=== PATIENT | female | born 1955 | race Caucasian/White ===

== ENCOUNTER 2019-07-06 20:46 | Emergency (ER) | payer MEDICARE ==
[2019-07-06 20:56] VITALS: BP 161/65
--- NOTE | 2019-07-06 20:59 | UC ---
Skin Complaint HPI - HPI Summary HPI Summary: 64 yo female presents with bee stings. She tells me that on 07/01/19 she was stung by several wasps on her legs and arms. She iced the areas and swelling and pain subsided within 24 hours. On 07/04 she had a colonoscopy prep that severely upset her stomach. She went in for her colonoscopy on 07/05, but ended up not having this performed. Her stomach has gradually improved since that time and she is drinking water and eating well. No diarrhea. Last night she noticed the areas where the bees stung her are red and raised again and mildly itchy. She took two benadryl today with no change. Denies fever, chills, decreased ROM, difficulty breathing, SOB, chest pain. - History of Current Complaint Chief Complaint: UCSkin Time Seen by Provider: 07/06/19 20:58 Stated Complaint: BEE STING Hx Obtained From: Patient Onset/Duration: Gradual Onset Onset Severity: Mild Current Severity: Mild Pain Intensity: 3 Pain Scale Used: 0-10 Numeric - Allergy/Home Medications Allergies/Adverse Reactions: Allergies Allergy/AdvReac Type Severity Reaction Status Date / Time kiwi Allergy Airway Verified 07/06/19 20:57 Obstruction Penicillins Allergy Unknown Verified 07/06/19 20:57 Reaction Details shellfish derived Allergy Anaphylatic Verified 07/06/19 20:57 Shock cats Allergy Wheezing Uncoded 07/06/19 20:57 Home Medications: Home Medications diphenhydrAMINE HCl [Benadryl Allergy] 1 tab PO Q4HR PRN 07/06/19 [History Confirmed 07/06/19] PMH/Surg Hx/FS Hx/Imm Hx - Additional Past Medical History Additional PMH: None - Surgical History Surgical History: Yes Surgery Procedure, Year, and Place: rhinoplasty. facial surgery - Family History Known Family History: Positive: Non-Contributory - Social History Lives: With Family Alcohol Use: Occasionally Substance Use Type: None Smoking Status (MU): Never Smoked Tobacco Review of Systems All Other Systems Reviewed And Are Negative: Yes Constitutional: Positive: Negative Skin: Positive: Other - Bee stings Respiratory: Positive: Negative Cardiovascular: Positive: Negative Neurovascular: Positive: Negative Musculoskeletal: Positive: Negative Neurological: Positive: Negative Psychological: Positive: Negative Physical Exam - Summary Physical Exam Summary: GENERAL: NAD. WDWN. No pain distress. SKIN: Bee stings with 1.0cm diameter areas of mild erythema and edema at left middle finger, left medial knee, left ankle, right medial knee, and right calf. HEENT: Head: AT/NC. No edema. Throat: Posterior oropharynx without exudates, erythema, or tonsillar enlargement. Uvula midline. Airway patent NECK: Supple. Nontender. No lymphadenopathy. CHEST: CTAB. No r/r/w. No accessory muscle use. Breathing comfortably and in no distress. CV: RRR. Without m/r/g. Pulses intact. Cap refill <2seconds NEURO: Alert. PSYCH: Age appropriate behavior. Triage Information Reviewed: Yes Vital Signs: Initial Vital Signs Temp 98.8 F 07/06/19 20:51 Pulse 102 07/06/19 20:51 Resp 18 07/06/19 20:51 BP 161/65 07/06/19 20:51 Pulse Ox 97 07/06/19 20:51 Vital Signs Reviewed: Yes Course/Dx - Course Course Of Treatment: Suspect histamine reaction due to inflammation from recent bowel prep that has caused a resurgence of her bee stings. Will start her with steroids and have her continue benadryl - Diagnoses Provider Diagnosis: Bee sting Discharge - Sign-Out/Discharge Documenting (check all that apply): Patient Departure All imaging exams completed and their final reports reviewed: No Studies - Discharge Plan Condition: Stable Disposition: HOME Prescriptions: predniSONE TAB* [Deltasone 20 MG TAB*] 60 mg PO DAILY #10 tab Patient Education Materials: Insect Bite or Sting (ED) Referrals: No Primary Care Phys,NOPCP [Primary Care Provider] - Additional Instructions: If you develop a fever, shortness of breath, chest pain, new or worsening symptoms - please call your PCP or go to the ED immediately. Your blood pressure was high at todays visit. Please see your primary provider within 4 weeks for recheck and re-evaluation. Continue taking benadryl and icing the areas - Billing Disposition and Condition Condition: STABLE Disposition: Home
[2019-07-06] MEDS ORDERED: Dexamethasone TAB* 4 MG PO ONE (21:13)
== END 2019-07-06 21:23 | disposition home or self-care (01) ==
LOC: UCEAST 20:46 → MERGE 20:46 → UCEAST 21:23
DX: T63.441A Toxic effect of venom of bees, accidental (unintentional), initial encounter (principal); Y92.9 Unspecified place or not applicable; Z88.0 Allergy status to penicillin
CPT/HCPCS: 99202; G0463; J8540

== ENCOUNTER 2019-12-23 11:27 | Emergency (ER) | payer MEDICARE ==
[2019-12-23 12:00] VITALS: BP 134/74
--- NOTE | 2019-12-23 12:01 | UC ---
Respiratory Complaint HPI - HPI Summary HPI Summary: 64 yo female presents with URI symptoms. She tells me that over the last 4 days she has had sinus pain/pressure/congestion. Over the last 2 days has had a persistent cough that feels "junky" in her lungs, but she is unable to cough anything up. She has a hx of asthma and has a nebulizer at home that she used this morning with little relief. She has felt fatigued and feverish, but has not taken her temperature. Denies sore throat, chest pain, back pain, abdominal pain, n/v. - History of Current Complaint Chief Complaint: UCGeneralIllness Stated Complaint: RESP COMPLAINT Time Seen by Provider: 12/23/19 12:01 Onset/Duration: Gradual Onset Severity Initially: Moderate Severity Currently: Moderate Pain Intensity: 7 Pain Scale Used: 0-10 Numeric - Allergies/Home Medications Allergies/Adverse Reactions: Allergies Allergy/AdvReac Type Severity Reaction Status Date / Time codeine Allergy GI Upset Verified 12/23/19 11:55 kiwi Allergy Airway Verified 07/31/19 07:19 Obstruction Penicillins Allergy Unknown Verified 07/31/19 07:19 Reaction Details shellfish derived Allergy Anaphylatic Verified 07/31/19 07:19 Shock cats Allergy Wheezing Uncoded 07/31/19 07:19 Home Medications: Home Medications Dextromethorphan Polistirex [Robitussin ER] 30 mg PO ONCE 12/23/19 [History Confirmed 12/23/19] PMH/Surg Hx/FS Hx/Imm Hx Respiratory History: Asthma - Surgical History Surgical History: Yes Surgery Procedure, Year, and Place: rhinoplasty. facial surgery - Family History Known Family History: Positive: Non-Contributory - Social History Occupation: Employed Full-time Lives: With Family Alcohol Use: None Substance Use Type: None Smoking Status (MU): Never Smoked Tobacco Review of Systems All Other Systems Reviewed And Are Negative: No Constitutional: Positive: Fatigue Skin: Positive: Negative Eyes: Positive: Negative ENT: Positive: Sinus Congestion, Sinus Pain/Tenderness Respiratory: Positive: Shortness Of Breath, Cough Cardiovascular: Positive: Negative Gastrointestinal: Positive: Negative Neurological: Positive: Negative Psychological: Positive: Negative Physical Exam - Summary Physical Exam Summary: GENERAL: NAD. WDWN. No pain distress. SKIN: No rashes, sores, lesions, or open wounds. HEENT: Head: AT/NC Eyes: Conjunctiva clear without inflammation or discharge. Ears: Hearing grossly normal. TMs intact, no bulging, erythema, or edema. Nose: Nasal mucosa mildly swollen and erythematous with yellow discharge. TTP maxillary and frontal sinus. Positive post nasal drip Throat: Posterior oropharynx without exudates, erythema, or tonsillar enlargement. Uvula midline. NECK: Supple. Nontender. No lymphadenopathy. CHEST: Moderate wheezing throughout. No r/r. No accessory muscle use. Breathing comfortably and in no distress. CV: RRR. Pulses intact. Cap refill <2seconds NEURO: Alert. PSYCH: Age appropriate behavior. Triage Information Reviewed: Yes Vital Signs: Initial Vital Signs Temp 98.8 F 12/23/19 11:56 Pulse 91 12/23/19 11:56 Resp 16 12/23/19 11:56 BP 134/74 12/23/19 11:56 Pulse Ox 96 12/23/19 11:56 Laboratory Tests 12/23/19 12:33 Influenza A (Rapid) Negative Influenza B (Rapid) Negative Vital Signs Reviewed: Yes Diagnostics - Radiology CXR Radiology Interpretation Completed By: Radiologist Summary of Radiographic Findings: IMPRESSION: NO ACTIVE CARDIOPULMONARY DISEASE. Re-Evaluation - Re-Evaluation First Eval Re-Evaluation Time: 13:10 Change: Improved Comment: Lung sounds improved s/p duoneb. Less wheezing. Respiratory Course/Dx - Course Course Of Treatment: CXR as above. POC flu negative. Suspect bronchitis/asthma exacerbation. - Differential Dx/Diagnosis Provider Diagnosis: Bronchitis Discharge ED - Sign-Out/Discharge Documenting (check all that apply): Patient Departure All imaging exams completed and their final reports reviewed: Yes - Discharge Plan Condition: Stable Disposition: HOME Prescriptions: Albuterol HFA INHALER* [Ventolin HFA Inhaler*] 1 - 2 puff INH Q6H PRN #1 mdi PRN Reason: Sob/Wheezing Benzonatate CAP* [Tessalon 100 MG CAP*] 100 mg PO TID PRN #21 cap PRN Reason: Cough predniSONE 20 mg TAB [Deltasone 20 MG TAB*] 40 mg PO DAILY #10 tab Patient Education Materials: Asthma (ED), Acute Bronchitis (ED) Referrals: Kylah Moreira MD [Primary Care Provider] - Additional Instructions: If you develop a fever, shortness of breath, chest pain, new or worsening symptoms - please call your PCP or go to the ED immediately. - Billing Disposition and Condition Condition: STABLE Disposition: Home
[2019-12-23] MEDS ORDERED: Albuterol/Ipratropium NEB.SOL* Albuterol 2.5 MG/Ipratropium 0.5 MG 3 ML INH ONE (12:09)
[2019-12-23 12:44] LABS: Influenza A Molecular NEGATIVE (Negative); Influenza B Molecular NEGATIVE (Negative)
== END 2019-12-23 13:20 | disposition home or self-care (01) ==
LOC: UCEAST 11:27
DX: J45.909 Unspecified asthma, uncomplicated (principal); R09.81 Nasal congestion; R09.89 Other specified symptoms and signs involving the circulatory and respiratory systems; Z88.5 Allergy status to narcotic agent; Z88.0 Allergy status to penicillin; Z91.09 Other allergy status, other than to drugs and biological substances; Z91.013 Allergy to seafood
CPT/HCPCS: 71046; 99212; A9270-GY; G0463

== ENCOUNTER 2020-02-20 18:19 | Emergency (ER) | payer MEDICARE ==
[2020-02-20 18:49] VITALS: BP 160/87
--- NOTE | 2020-02-20 18:58 | UC ---
Throat Pain/Nasal Ranjit HPI - HPI Summary HPI Summary: 64-year-old woman comes in with a chief complaint of sore throat. She's had upper respiratory tract infection symptoms for about one week. She has some rhinorrhea and postnasal drip. She has a sore throat. She took 2-1/2 days of clindamycin that she had left over from some other infection and that did improve the symptoms. When she stopped clindamycin the symptoms came back. No fever no cough no shortness of breath. - History of Current Complaint Chief Complaint: UCGeneralIllness Stated Complaint: SORE THROAT Time Seen by Provider: 02/20/20 18:23 Pain Intensity: 4 - Allergies/Home Medications Allergies/Adverse Reactions: Allergies Allergy/AdvReac Type Severity Reaction Status Date / Time codeine Allergy GI Upset Verified 02/20/20 18:32 kiwi Allergy Airway Verified 02/20/20 18:32 Obstruction Penicillins Allergy Unknown Verified 02/20/20 18:32 Reaction Details shellfish derived Allergy Anaphylatic Verified 02/20/20 18:32 Shock cats Allergy Wheezing Uncoded 02/20/20 18:32 Home Medications: Home Medications Acetaminophen TAB* [Tylenol TAB*] 650 mg PO Q6H PRN 02/20/20 [History Confirmed 02/20/20] Clindamycin Cap(NF) [Clindamycin Cap 300 mg Cap(NF)] 300 mg PO TID #30 cap 02/19 [Rx] PMH/Surg Hx/FS Hx/Imm Hx Previously Healthy: Yes - Surgical History Surgical History: Yes Surgery Procedure, Year, and Place: rhinoplasty. facial surgery - Family History Known Family History: Positive: Non-Contributory - Social History Alcohol Use: None Substance Use Type: None Smoking Status (MU): Never Smoked Tobacco Review of Systems All Other Systems Reviewed And Are Negative: Yes Constitutional: Positive: Negative Eyes: Positive: Negative ENT: Positive: Sore Throat, Nasal Discharge, Sinus Congestion Respiratory: Positive: Negative Cardiovascular: Positive: Negative Gastrointestinal: Positive: Negative Motor: Positive: Negative Neurovascular: Positive: Negative Musculoskeletal: Positive: Negative Neurological/Mental Status: Positive: Negative Psychological: Positive: Negative Is Patient Immunocompromised?: No Physical Exam Triage Information Reviewed: Yes Appearance: Well-Appearing, No Pain Distress, Well-Nourished Vital Signs: Initial Vital Signs Temp 98.0 F 02/20/20 18:26 Pulse 83 02/20/20 18:26 Resp 15 02/20/20 18:26 BP 160/87 02/20/20 18:26 Pulse Ox 96 02/20/20 18:26 Vital Signs Reviewed: Yes Eye Exam: Normal Eyes: Positive: Conjunctiva Clear ENT: Positive: Pharyngeal erythema, Nasal congestion, Nasal drainage, TMs normal Neck: Positive: Supple Respiratory: Positive: Lungs clear, Normal breath sounds, No respiratory distress Cardiovascular: Positive: RRR Musculoskeletal: Positive: Strength Intact, ROM Intact Neurological: Positive: Alert, Muscle Tone Normal Psychological: Positive: Age Appropriate Behavior Skin Exam: Normal Throat Pain/Nasal Course/Dx - Course Course Of Treatment: DISCUSSED VIRAL VERSES BACTERIAL INFECTION AND THE ROLE OF ANTIBIOTICS. THE PATIENT PREFERS TO BE ON ANTIBIOTICS AT THIS TIME. - Differential Dx/Diagnosis Provider Diagnosis: Sinusitis, Pharyngitis Discharge ED - Sign-Out/Discharge Documenting (check all that apply): Patient Departure All imaging exams completed and their final reports reviewed: No Studies - Discharge Plan Condition: Stable Disposition: HOME Prescriptions: Clindamycin Cap(NF) [Clindamycin Cap 300 mg Cap(NF)] 300 mg PO TID #30 cap Patient Education Materials: Pharyngitis (ED), Sinusitis (ED) Referrals: Kylah Moreira MD [Primary Care Provider] - Additional Instructions: FOLLOW UP WITH YOUR DOCTOR IF NOT COMPLETELY IMPROVED. GET REEVALUATED IF NOT IMPROVED OR WORSE OR ANY QUESTIONS OR CONCERNS. - Billing Disposition and Condition Condition: STABLE Disposition: Home
== END 2020-02-20 19:00 | disposition home or self-care (01) ==
LOC: UCEAST 18:19
DX: J32.9 Chronic sinusitis, unspecified (principal); J02.9 Acute pharyngitis, unspecified; Z88.5 Allergy status to narcotic agent; Z88.0 Allergy status to penicillin; Z91.013 Allergy to seafood; Z91.018 Allergy to other foods; Z91.09 Other allergy status, other than to drugs and biological substances
CPT/HCPCS: 87651; 99212; G0463